=== PATIENT | male | born 1985 | race Native Hawaiian/Other Pacific Islander ===

== ENCOUNTER 2018-04-06 09:36 | Emergency (ER) | payer OTHER ==
[~2018-04-06] VITALS: Ht 162.6 cm; Wt 67.3 kg
[2018-04-06] MEDS ORDERED: LIDOcaine 1% 30ml preserv. free vial IJ ONE (09:50)
[2018-04-06] MEDS ORDERED: TETanus/Pertussis (Acell)/Diphther VAC/PF (Tdap-Adult) 0.5ml syringe IM ONE (09:50)
[2018-04-06] MEDS ORDERED: TRAM50TA2 PO (09:55)
[2018-04-06] MEDS ORDERED: ceFAZolin 1GM/D5W- ADD-VANTAGE 50 ML IV ONE (10:20)
[2018-04-06] MEDS ORDERED: ketorolac tromethamine 15mg/ml inj. IV ONE (11:05)
[2018-04-06] MEDS ORDERED: CEPH-572 PO (11:07)
[2018-04-06 11:40] VITALS: BP 140/107
== END 2018-04-06 11:42 | disposition home or self-care (01) ==
LOC: ER 09:37
DX: S62.660A Nondisplaced fracture of distal phalanx of right index finger, initial encounter for closed fracture (principal); Z79.2 Long term (current) use of antibiotics; Z79.899 Other long term (current) drug therapy; W23.0XXA Caught, crushed, jammed, or pinched between moving objects, initial encounter; Y93.89 Activity, other specified; Y92.89 Other specified places as the place of occurrence of the external cause; Y99.8 Other external cause status
CPT/HCPCS: 29130; 73140; 90471; 90715; 96365; 96375; 99284; A6222; A6449; J0690; J1885; J3490